=== PATIENT | male | born 1940 | race Caucasian/White ===

== ENCOUNTER → 2017-07-27 | Outpatient (CLI) | payer MEDICARE, BC | END | disposition home or self-care (01) | LOC: GMAL 11:12 | PROVIDERS: ATTEND Family Medicine | DX: D51.3 Other dietary vitamin B12 deficiency anemia (principal); Z12.5 Encounter for screening for malignant neoplasm of prostate; R53.82 Chronic fatigue, unspecified; E55.9 Vitamin D deficiency, unspecified | CPT/HCPCS: 82306; 82607; 84443; G0103 ==

== ENCOUNTER → 2018-01-29 | Outpatient (CLI) | payer MEDICARE, BC ==
--- NOTE | 2018-01-29 18:03 | RAD ---
EXAM DESCRIPTION: Pelvis CLINICAL HISTORY: 77 years Male, RIGHT HIP PAIN COMPARISON: None. TECHNIQUE: Single AP view the pelvis FINDINGS: Bones of the pelvic ring appear intact. Degenerative changes are seen in the lower lumbar spine with mild dextroscoliosis partly visualized. There is moderate narrowing of the medial aspect of the hip joints bilaterally. No femoral fracture or hip dislocation. There is early spur formation at the superolateral femoral head neck junctions and along the lateral margins of the acetabular roofs. Pelvic phleboliths are present. IMPRESSION: Negative for fracture or dislocation. Electronically signed by: Jose E Hawkins MD 01/29/2018 6:00 PM CDT
--- NOTE | 2018-01-30 12:02 | RAD ---
EXAM DESCRIPTION: Hip,Right 2 Views CLINICAL HISTORY: 77 years Male, RIGHT HIP PAIN COMPARISON: None. FINDINGS: 2 views of the right hip show no acute fracture or malalignment. The right hip joint space is only slightly narrowed. No focal bone lesion. No soft tissue abnormality. IMPRESSION: Mild degenerative changes in the right hip, otherwise unremarkable exam. Electronically signed by: Nate Preston MD 01/30/2018 12:00 PM CDT
== END ==
LOC: RAD 09:07
PROVIDERS: ATTEND Orthopaedic Surgery
DX: M25.551 Pain in right hip (principal)

== ENCOUNTER → 2018-02-03 | Outpatient (CLI) | payer MEDICARE, BC | LOC: GMAL 10:57 | PROVIDERS: ATTEND Family Medicine | DX: R97.20 Elevated prostate specific antigen [PSA] (principal) ==

== ENCOUNTER → 2018-02-05 | Outpatient (CLI) | payer MEDICARE, BC ==
--- NOTE | 2018-02-08 08:44 | MRI ---
EXAM DESCRIPTION: Lumbar Spine w/o Contrast MRI. CLINICAL HISTORY: RADICULOPATHY COMPARISON: None. TECHNIQUE: Multiplanar, multiple standard sequences, non contrast MRI, lumbar spine. FINDINGS: L5-S1: Disc desiccation and minimal disc space loss. Minimal bulging into the bilateral foramina but not the canal. Mild canal narrowing. Bilateral facet effusion and flavum ligament hypertrophy. Modic type II endplate reactive changes with disc spur complex encroaching on the right foramen. Bilateral foraminal stenosis more right than left. Bilateral subarticular recess narrowing secondary to facet hypertrophy. Right L5 pars spondylolysis. L4-5: Disc desiccation and posterior disc space loss. Posterior 4 mm disc bulge. Minimal flavum ligament hypertrophy. Minimal right facet arthrosis. Mild left foraminal narrowing. Borderline right foraminal stenosis. L3-4: Minimal disc desiccation posterior minimal disc osteophyte bulge. Flavum ligament hypertrophy and bilateral facet arthrosis more right than left. Questionable deformity of the right L4 pars. Left L4 pars is intact. Moderate right foraminal narrowing. Mild narrowing left foramen. Mild canal narrowing. L2-3: Moderate to severe disc space loss in the midline into the left midline with diffuse Modic type II endplate reactive changes anterior and to the right. Trace retrolisthesis. Bilateral mild foraminal narrowing. Posterior facet arthrosis more on the left than the right. L1-2: Diffuse moderate severe disc space loss with trace retrolisthesis. Modic type II endplate reactive changes in the midline into the left of midline. Also anterior with disc bulge and endplate ridging. Schmorl's nodes in the endplates.. Disc osteophyte bulge into the left foramen with borderline foraminal stenosis. Normal disc space to the right of midline. T12-L1: Disc desiccation and endplate Schmorl's nodes. Minimal posterior disc bulge. Conus terminates at this level. Mild bilateral foraminal narrowing. Posterior elements unremarkable. L1-L4 dextroscoliosis is moderate. Paravertebral soft tissues show muscle atrophy. Heterogeneous marrow signal in the sacrum and lower segments of the lumbar spine.. Otherwise normal marrow signal in the remaining vertebral bodies and the posterior elements. Vertebral bodies are not compressed at any level. IMPRESSION: 1. Trace retrolisthesis L5-S1 with moderate right-sided spondylosis, disc spur complex encroaching on the right foramen and stenosis. Disc and bony elements causing stenosis on the left foramen. Correlate for bilateral L5 radiculopathy. Right L5 pars spondylolysis. Bilateral subarticular recess narrowing due to facet hypertrophy. 2. L4-5 posterior disc bulge. Right facet arthrosis and borderline right foraminal stenosis. Correlate for right L4 radiculopathy. 3. L1-2 trace retrolisthesis and diffuse moderate to severe disc space loss. Left side spondylosis and disc osteophyte complex encroaching on the foramen. Correlate for left L1 radiculopathy. 4. Moderate to severe L2-3 disc space loss with moderate spondylosis on the right and disc osteophyte complex encroaching on the right foramen. Electronically signed by: Yash Sanders MD 02/08/2018 8:43 AM CDT
== END ==
LOC: MRI 13:52
PROVIDERS: ATTEND Orthopaedic Surgery
DX: M51.16 Intervertebral disc disorders with radiculopathy, lumbar region (principal); M43.17 Spondylolisthesis, lumbosacral region

== ENCOUNTER 2018-08-23 21:24 | Inpatient (IN) | payer MEDICARE, BC ==
[2018-08-23] MEDS ORDERED: methylPREDNISolone SODIUM SUC 125 MG/2 ML VIAL IV ONE (21:47)
[2018-08-23] MEDS ORDERED: IPRATROPIUM/ALBUTEROL 3 ML VIAL NEB ONE (21:48)
--- NOTE | 2018-08-23 22:05 | ED.PDOC ---
History of Present Illness - General Chief Complaint: Respiratory Problem Stated Complaint: short of breath Time Seen by Provider: 08/23/18 21:46 - History of Present Illness Initial Comments: 77 Y/O MALE C/O SOB, STARTED TODAY AROUND 1000, CONSTANT, MODERATE, GETTING WORSE. REFERS THAT HE HAD A TOOTH PULLED ABOUT 2 WEEKS AGO FOR WHICH HE HAS BEEN IN TWO ANTIBIOTICS, DOESN'T REMEMBER NAME. ONE WEEK AGO STARTED SINUS CONGESTION AND GREEN, MAL ODOROUS RHINORRHEA, HAS APPOINTMENT TO SEE DR Evelyne WILKERSON TOMORROW. HAS HAD LOW GRADE FEVER IN THE PAST TWO DAYS, SL COUGH BUT NO PHLEGM. DENIES CP, ABD PAIN, N/V/D, PEDAL EDEMA. Allergies/Adverse Reactions: Allergies Penicillins Allergy (Verified 08/23/18 21:41) Home Medications: Ambulatory Orders Aspirin (Buffered) 325 mg 08/23/18 Atenolol 08/23/18 Atorvastatin Calcium 08/23/18 Eliquis 08/23/18 Losartan Potassium 08/23/18 Zantac 08/23/18 Review of Systems - Review of Systems Constitutional: States: fever. Denies: chills, weakness EENTM: States: nose congestion. Denies: eye pain, blurred vision, double vision , ear pain, ear discharge, nose pain, throat pain, mouth pain Respiratory: States: cough, short of breath. Denies: orthopnea, stridor, wheezing Cardiology: Denies: chest pain, edema, palpitations, syncope Gastrointestinal/Abdominal: States: no symptoms reported Genitourinary: States: no symptoms reported Musculoskeletal: States: no symptoms reported Skin: States: no symptoms reported Neurological: States: no symptoms reported Endocrine: States: no symptoms reported Hematologic/Lymphatic: States: no symptoms reported Past Medical History (General) - Patient Medical History Hx Cardiac Disorders: Yes - NM IN 2010, A FIB Hx Congestive Heart Failure: No Hx Hypertension: Yes Hx Gastroesophageal Reflux: Yes Hx Other - free text: HYPERCHOLESTEROLEMIA - Vaccination History Immunizations Up to Date: Yes - Social History Hx Tobacco Use: No Hx Chewing Tobacco Use: No Hx Alcohol Use: No - Activities of Daily Living Patient Lives Alone: No - Triage Comment ED Triage Comment: shortness of breath over past several hours, getting worse Family Medical History - Family History Father Family History: Unknown Physical Exam - Physical Exam General Appearance: Alert, Other - MILD RESPIRATORY DISTRESS Eye Exam: bilateral normal Ears, Nose, Throat: normal ENT inspection, normal pharynx, hearing decreased Neck: non-tender, full range of motion, supple, normal inspection Respiratory: chest non-tender, rhonchi, wheezing Cardiovascular/Chest: normal peripheral pulses, regular rate, rhythm, no edema, no gallop, no JVD Gastrointestinal/Abdominal: normal bowel sounds, non tender, soft, no organomegaly, no pulsatile mass Back Exam: normal inspection, no CVA tenderness Neurologic: city wellness coordinator II-XII nml as tested, no motor/sensory deficits, alert, normal mood/affect, oriented x 3 Skin Exam: normal color, warm/dry Lymphatic: no adenopathy Progress - Progress Progress: 08/23/18 23:13 BREATHING SL BETTER AFTER BREATHING TREATMENTS. STILL HAVING SOME BILATERAL WHEEZING. CXR C/W BILAT CONSOLIDATION AND PULMONARY EDEMA, BNP AND CBC ELEVATED. BLOOD CULTURES DONE, LEVAQUIN AND LASIX IV GIVEN. 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, WILL ADMIT 08/23/18 23:16 08/23/18 21:45 EKG STAT 08/23/18 22:00 EKG STAT 08/23/18 22:45 levoFLOXacin 750MG IV [Levaquin 750MG IV] 750 mg Premix Bag 1 bag IVPB ONCE 08/23/18 23:00 BLOOD CULTURE Stat Laboratory Results WBC 12.4 K/mm3 (4.8-10.8) H 08/23/18 21:50 RBC 4.21 M/mm3 (4.70-6.10) L 08/23/18 21:50 Hgb 11.7 gm/dL (14.0-18.0) L 08/23/18 21:50 Hct 36.3 % (42.0-52.0) L 08/23/18 21:50 MCV 86.2 fl (80.0-94.0) 08/23/18 21:50 MCH 27.7 pg (27.0-31.0) 08/23/18 21:50 MCHC 32.2 g/dL (33.0-37.0) L 08/23/18 21:50 RDW 12.1 % (11.5-14.5) 08/23/18 21:50 Plt Count 330 K/mm3 (130-400) 08/23/18 21:50 MPV 9.8 fl (7.40-10.4) 08/23/18 21:50 Absolute Neuts (auto) 10.50 K/uL (1.8-6.8) H 08/23/18 21:50 Absolute Lymphs (auto) 0.80 K/uL (1.0-3.4) L 08/23/18 21:50 Absolute Monos (auto) 0.80 K/uL (0.2-0.8) 08/23/18 21:50 Absolute Eos (auto) 0.30 K/uL (0.0-0.4) 08/23/18 21:50 Absolute Basos (auto) 0.10 K/uL (0.0-0.1) 08/23/18 21:50 Neutrophils % 84.6 % (42.0-78.0) H 08/23/18 21:50 Lymphocytes % 6.1 % (20.0-50.0) L 08/23/18 21:50 Monocytes % 6.3 % (2.0-9.0) 08/23/18 21:50 Eosinophils % 2.3 % (1.0-5.0) 08/23/18 21:50 Basophils % 0.7 % (0.0-2.0) 08/23/18 21:50 PT 10.8 SECONDS (9.0-10.9) 08/23/18 21:50 INR 1.08 (0.9-1.15) 08/23/18 21:50 PTT (SP) 27.9 SECONDS (21.8-31.6) 08/23/18 21:50 Sodium 138 mmol/L (135-145) 08/23/18 21:50 Potassium 4.0 mmol/L (3.6-5.0) 08/23/18 21:50 Chloride 107 mmol/L (101-111) 08/23/18 21:50 Carbon Dioxide 24 mmol/L (21-31) 08/23/18 21:50 Anion Gap 11.0 (12-18) L 08/23/18 21:50 BUN 16 mg/dL (7-18) 08/23/18 21:50 Creatinine 1.20 mg/dL (0.6-1.3) 08/23/18 21:50 BUN/Creatinine Ratio 13.3 (10-20) 08/23/18 21:50 Random Glucose 147 mg/dL (70-105) H 08/23/18 21:50 Serum Osmolality 279.6 mOsm/L (275-295) 08/23/18 21:50 Calcium 8.7 mg/dL (8.4-10.2) 08/23/18 21:50 Total Bilirubin 0.5 mg/dL (0.2-1.0) 08/23/18 21:50 AST 31 IU/L (10-42) 08/23/18 21:50 ALT 33 IU/L (10-60) 08/23/18 21:50 Alkaline Phosphatase 123 IU/L (42-121) H 08/23/18 21:50 Troponin I 0.02 ng/mL (0.01-0.05) 08/23/18 21:51 B-Natriuretic Peptide 830.0 pg/ml (0-100) H* 08/23/18 21:50 Serum Total Protein 7.1 gm/dL (6.4-8.2) 08/23/18 21:50 Albumin 3.5 g/dl (3.2-5.5) 08/23/18 21:50 Globulin 3.6 gm/dL (2.3-3.5) H 08/23/18 21:50 Albumin/Globulin Ratio 1.0 (1.1-1.9) L 08/23/18 21:50 - EKG/XRAY/CT Comments: NSR 65X', AQRS: 20 QTc 472 NON SPECIFIC STT CHANGES Xray Comments: BILATERAL CONSOLIDATION AND PULMONARY EDEMA - Consult/PCP Time Called: 23:15 - WILL ADMIT Consult/PCP: Daniel RASHEED Departure - Departure Clinical Impression: Bilateral pneumonia, Congestive heart failure (CHF) ICD-10 Supporting Text: BILATERAL PNEUMONIA CONGESTIVE HEART FAILURE Time of Disposition: 23:19 Disposition: Admit Patient Condition: Fair Departure Forms: ED Discharge - Pt. Copy, Patient Portal Self Enrollment Referrals: Venancio Vaca III, MD [Primary Care Provider] - 1-2 Weeks Home Medications: Ambulatory Orders Aspirin (Buffered) 325 mg 08/23/18 Atenolol 08/23/18 Atorvastatin Calcium 08/23/18 Eliquis 08/23/18 Losartan Potassium 08/23/18 Zantac 08/23/18
--- NOTE | 2018-08-23 22:19 | RAD ---
EXAM DESCRIPTION: Chest,1 View CLINICAL HISTORY: SOB COMPARISON: EXAM DESCRIPTION: Chest,1 View CLINICAL HISTORY: SOB COMPARISON: None. FINDINGS: Single view of the chest is submitted. Cardiac silhouette is mildly enlarged. There is bilateral consolidation at the lung bases with pulmonary edema and bilateral pulmonary vascular engorgement. IMPRESSION: Bilateral consolidations and pulmonary edema. FINDINGS: Cardiac silhouette is within normal limits. There is no focal parenchymal or pleural disease. Visualized osseous structures are within normal limits. IMPRESSION: No evidence of acute cardiopulmonary disease. Electronically signed by: Yash Harris 08/23/2018 10:18 PM CDT
[2018-08-23] MEDS ORDERED: FUROSEMIDE INJ 40 MG/4 ML VIAL IV ONE (22:44)
[2018-08-23] MEDS ORDERED: levoFLOXacin 750MG IV 750 MG in PREMIX BAG 1 BAG IVPB ONE (22:45)
--- NOTE | 2018-08-23 23:49 | HP ---
SUPERVISING PHYSICIAN: Aki Quiroga MD CHIEF COMPLAINT: Shortness of breath. HISTORY OF PRESENT ILLNESS: Mr. Singh is a 77-year-old male patient who presented to the Emergency Room late on 08/23/18 for complaints of severe congestion, shortness of breath that had significantly worsened since he had a tooth pulled about two weeks previously. He noted last night around 10 o'clock his shortness of breath worsened enough that he was concerned and thus presented to the Emergency Room. He notes he had a tooth pulled about two weeks previously and was placed on two antibiotics, which he was unable to recall the names of, and about a week previous had started having severe sinus congestion with some green, malodorous rhinorrhea. He was to see Dr. Kirkland on 08/24/18, but developed a low grade fever with a slight nonproductive cough and was having shortness of breath. He denied any chest pains, any abdominal pains, nausea, vomiting, diarrhea or any pedal edema. In the Emergency Room, vital signs showed he was hypertensive initially with a blood pressure of 194/ 116. Temperature 99.6. Pulse 64. Respirations 20 to 26. Saturation 94% on room air. Chest x-ray was completed and shows bilateral consolidation in the lung bases with pulmonary edema, bilateral pulmonary vascular engorgement. Laboratory studies showed he had a leukocytosis of 12,400 with a left shift and chemistries showed BNP of 830 with troponin 0.02. His 12-lead EKG showed a normal sinus rhythm at [address]-T wave changes with no comparisons available. Given his shortness of breath and findings on chest x- ray along with the BNP elevated, he was given 40 mg of Lasix, breathing treatments and started on antibiotics for concerns for both congestive heart failure exacerbation and concern for community acquired pneumonia. His symptoms improved after Lasix and breathing treatments with his vital signs showing blood pressure decreased to 150/78 with heart rate 54, saturation 96% on 2 liters nasal cannula with respiratory effort 20. Given that he had developed acute shortness of breath with concerns for possible acute congestive heart failure with history noted of congestive heart failure and concerns for community acquired pneumonia, the Emergency Room physician requested the patient be admitted for further treatment and evaluation. The patient was admitted in stable condition. PAST MEDICAL HISTORY: 1. Atrial fibrillation on amiodarone and chronic anticoagulation with Eliquis. 2. Hyperlipidemia. 3. Hypertension with mild diastolic dysfunction noted on last echocardiogram on 12/27/16 with ejection fraction of 60%. 4. Myocardial infarction in 2009. 5. Benign prostatic hypertrophy on Cialis. PAST SURGICAL HISTORY: 1. Right inguinal hernia repair in 2006. 2. Coronary artery stent placement in the right coronary artery [place] [address] Mccracken. Last echocardiogram noted on 12/17/16 with a mild diastolic dysfunction with ejection fraction 60%. Nuclear stress test on 12/17/16 with normal EKG findings and normal perfusion with no at risk myocardium. HOME MEDICATIONS: 1. Vitamin B12 2500 mcg daily. 2. Famotidine 20 mg at bedtime. 3. Amiodarone 200 mg daily. 4. Meloxicam 7.5 mg b.i.d. 5. Atorvastatin 40 mg at bedtime. 6. Cialis 5 mg at bedtime. 7. Aspirin 325 mg daily. 8. Losartan 50 mg daily. 9. Atenolol 50 mg daily. 10. Eliquis 5 mg b.i.d. ACUTE MEDICATIONS: 1. Cephalexin 500 mg t.i.d. for 10 days. ALLERGIES: PENICILLINS. FAMILY HISTORY: Father at age 78 due to lung cancer. Mother at age 91 due to complications from dementia. SOCIAL HISTORY: The patient lives in [place], [place]. He is a retired saucedo. He is . He has four children, one . He does not drink alcohol and never has. He smoked tobacco from age 13 to 33 and currently is a nonsmoker. He denies any illicit drug use. REVIEW OF SYSTEMS: CONSTITUTIONAL: Denies any chills, or weakness. He reports a subjective low grade fever. HEENT: He notes significant nasal congestion with purulent rhinorrhea, foul smelling, but denies any earaches, sore throat. He does note he has had a chronic hoarseness of his voice. RESPIRATORY: He has a nonproductive cough with shortness of breath as noted in history of present illness. He denies any orthopnea, stridor or wheezing. CARDIOVASCULAR: Denies chest pain, palpitations, edema or syncopal episodes. GASTROINTESTINAL: Denies abdominal pain, constipation, diarrhea. GENITOURINARY: Denies dysuria, hematuria, polyuria. NEUROLOGIC: Denies ataxia, seizures, headaches, or other neurologic deficits. PHYSICAL EXAMINATION: VITAL SIGNS: On admission in the Emergency Room, he was hypertensive with a blood pressure 194/116. Heart rate 64. Temperature 99.6. Respirations 20 to 30. O2 saturation 94% on room air. After breathing treatments and Lasix, on admission to the Medical/Surgical Floor, blood pressure was 160/88. Heart rate 50. Respirations 20. Saturation 97% on 2 liters nasal cannula. Admission weight 76.2 kg. GENERAL: On admission to the Medical/Surgical Floor, the patient appeared to be in no acute distress, resting comfortably, no obvious shortness of breath. HEENT: Tympanic membranes clear bilaterally. Oropharynx is pink, moist without any lesions. NECK: Supple, nontender with full range of motion. RESPIRATORY: Lung sounds diminished with some rhonchi and mild inspiratory wheezing. No rales noted. CARDIOVASCULAR: Regular rate and rhythm without any appreciable murmurs, gallops, or rubs. No jugular venous distention noted. ABDOMEN: Soft, nontender. No rebound tenderness. Positive bowel sounds. EXTREMITIES: There is no cyanosis, clubbing or edema. NEUROLOGIC: The patient is alert and oriented times three. Cranial nerves II- XII are grossly intact. Facial features are symmetrical. Extraocular movements are within normal limits. There is no nystagmus noted. LABORATORY: CBC on admission showed white count 12,400, hemoglobin 11.7, hematocrit 36.3, platelet count 330,000. Differential show a left shift. Coagulation studies showed PT 10.8, PT-T 27.9. Chemistries showed normal electrolytes. Potassium 4.0, BUN 16, creatinine 1.2. Liver functions within normal limits. Alkaline phosphatase elevated at 123. Troponin 0.02 initially with BNP 830. Urinalysis pending. MICROBIOLOGY: Blood cultures pending. Sputum culture pending. RADIOLOGY: Chest x-ray, single view, in the Emergency Room prior to admission per radiologic interpretation showed bilateral consolidations at the lung bases with pulmonary edema and bilateral pulmonary vascular engorgement. CT of the head and sinuses pending. ASSESSMENT: 1. Acute dyspnea secondary to pulmonary edema possibly exacerbated by developing upper respiratory infection including possible community acquired pneumonia, bilateral resulting in acute episode fo AFIB with Rapid ventricular Response. 2. Concerns for developing bilateral community acquired pneumonia with the patient having been on two-week course of antibiotics with a history of upper respiratory infection and sinusitis. 3. Severe sinusitis status post dental extractions having failed to respond to outpatient management with antibiotics, awaiting CT studies for further evaluation and to further without abscess formation. 4. History of atrial fibrillation on chronic anticoagulation with Eliquis. Showing sinus rhythm on admit EKG. 5. Hypertension with urgency on admission, likely secondary to acute episode of pulmonary edema. 6. Benign prostatic hypertrophy on Cialis without any complications. PLAN: The patient is going to be admitted to the Medical/Surgical Floor having failed to respond outpatient of upper respiratory infection with developing bilateral community acquired pneumonia with acute onset of pulmonary edema. We will start him on Levaquin and obtain a CT of his head and sinuses to further rule out abscess formation. He will be on aggressive pulmonary hygiene. He was given Solu-Medrol initially in the Emergency Room. This will be closely monitored, but we will hold on giving additional steroids at this point. I have asked for a consult with Dr. Mccracken to help with management of the acute pulmonary edema and with concerns for acute onset of congestive heart failure. He is supposed to have an appointment Dr. Kirkland in the morning, however, I anticipate his stay will be at least two or three days and certainly at discharge he can followup with Dr. Kirkland as needed. We will start him on Lasix 40 mg b.i.d. for the first 24 hours, watch his I&Os closely and provide him with potassium supplementation as needed. Until the patient is showing clinical improvement and can be discharged to continue with outpatient management, we will continue to follow and treat as needed. Once discharged, he will need followup with his primary care physician, Dr. Vaca. #[id number] [facility]
[2018-08-24] MEDS ORDERED: ALBUTEROL SULFATE 2.5 MG/3 ML VIAL NEB PRN (00:26)
[2018-08-24] MEDS ORDERED: ACETAMINOPHEN 325 MG TAB PO PRN (00:26)
[2018-08-24] MEDS ORDERED: SODIUM CHLORIDE 0.9% (FLUSH) 10 ML SYG IV PRN ×2 (00:26→00:33)
[2018-08-24] MEDS ORDERED: IV SET AND CAP CHANGE INJ INJ SCH ×2 (00:30→01:00)
[2018-08-24] MEDS ORDERED: ELIQUIS 5 MG PO SCH (00:30)
[2018-08-24] MEDS ORDERED: NITROGLYCERIN 0.4 MG 25 EA TAB SL PRN (00:33)
[2018-08-24] MEDS ORDERED: APIXABAN 2.5 MG TAB PO ONE ×2 (01:00→08:18)
[2018-08-24] MEDS: MELOXICAM 7.5 MG TAB PO SCH ×3 (01:04→20:40)
[2018-08-24] MEDS: PANTOPRAZOLE SODIUM IV 40 MG VIAL IV SCH (06:37)
--- NOTE | 2018-08-24 07:13 | RAD ---
EXAM: PA and LATERAL CHEST RADIOGRAPHS CLINICAL INDICATION: Pneumonia. COMPARISON: Yesterday's chest radiograph at 2152 hours. FINDINGS: Cardiac size has returned to normal. Resolution of pulmonary edema. Residual right basilar consolidation. Left lung is clear. No pneumothorax. Bones appear intact on this single view. IMPRESSION: 1. Resolution of pulmonary edema since yesterday's chest radiograph. 2. Residual right basilar consolidation which might represent pneumonia. 3. No pneumothorax. Electronically signed by: Damian Mendosa MD 08/24/2018 7:11 AM CDT
[2018-08-24] MEDS ORDERED: POTASSIUM CHLORIDE 20 MEQ TAB PO SCH (07:30)
[2018-08-24] MEDS: IPRATROPIUM/ALBUTEROL 3 ML VIAL INH SCH ×4 (07:47→19:38)
[2018-08-24] MEDS ORDERED: ATENOLOL 25 MG TAB ONE (08:18)
[2018-08-24] MEDS ORDERED: ASPIRIN TABLET 325 MG TAB ONE (08:18)
[2018-08-24] MEDS ORDERED: LOSARTAN POTASSIUM 25 MG TAB ONE (08:18)
[2018-08-24] MEDS ORDERED: FUROSEMIDE INJ 40 MG/4 ML VIAL IV SCH (09:00)
[2018-08-24] MEDS: LOSARTAN POTASSIUM 25 MG TAB PO SCH (09:45)
[2018-08-24] MEDS: AMIODARONE HCL 200 MG TAB PO SCH (09:45)
[2018-08-24] MEDS: ATENOLOL 25 MG TAB PO SCH (09:45)
[2018-08-24] MEDS: APIXABAN 2.5 MG TAB PO SCH ×2 (09:45→20:39)
[2018-08-24] MEDS: CYANOCOBALAMIN 1,000 MCG TAB PO SCH (09:45)
[2018-08-24] MEDS: ASPIRIN (ENTERIC COATED) 325 MG TAB PO SCH (09:47)
--- NOTE | 2018-08-24 10:44 | CT ---
CLINICAL HISTORY: 77 years Male, chronic sinusitis COMPARISON: None. TECHNIQUE: Spiral, axial 2.5 x 2.5 mm scans through the paranasal sinuses without contrast. Coronal and sagittal 2.0 mm reconstructions. Axial, helical 2.5 mm reconstruction using bone algorithm. Total Exam DLP: 221.06 mGy-cm. This exam was performed according to our departmental CT dose-optimization program which includes automated exposure control, adjustment of the mA and/or kV according to patient size and/or use of iterative reconstruction technique; to reduce radiation dose to as low as reasonably achievable (ALARA). FINDINGS: Large air-fluid level occupying at least 50% of the left maxillary antrum with mucoperiosteal thickening. Obstruction of the left ostiomeatal unit. Air-fluid level in the right maxillary antrum but smaller volume. Also mucoperiosteal thickening and mucous retention cyst or polyps in the base. Partial narrowing of the right ostium of the ostiomeatal unit. Polyp versus mucous retention cyst anterior sphenoid sinus cavity to the right of midline. Partial obstruction of the right sphenoid nasal ostia. Left sphenoid nasal ostia is patent. Muco- periosteal thickening anterior ethmoid air cells. Mucoperiosteal thickening in the left frontal air cells. Bilateral woo bullosa in the middle turbinates. Septum is deviated to the right. Minimal turbinate mucosal hypertrophy bilaterally. Included mastoid air cells are unremarkable on the left with minimal opacification of some of the cells on the right. Posterior left septal spur narrowing the posterior left mid passage way. IMPRESSION: 1. Acute sinusitis involving the maxillary antra more on the left than the right. Obstruction of the left ostiomeatal unit and narrowing of the ostia on the right ostiomeatal unit. 2. Chronic sinusitis in the anterior ethmoid air cells, large right sphenoid air cell and inferior anterior left frontal air cells. 3. Bilateral woo bullosa in the middle turbinates. Anterior right septal deviation. Posterior left septal spur narrowing the posterior left nasal passageway. 4. Chronic sinusitis in some of the right mastoid air cells. Electronically signed by: Yash Sanders MD 08/24/2018 10:42 AM CDT
--- NOTE | 2018-08-24 10:56 | CT ---
EXAM DESCRIPTION: Head: Computed Tomography. CLINICAL HISTORY: sinus pressure, confusion. Pain in maxillary region of sinuses bilaterally. COMPARISON: CT scan of the facial bones and paranasal sinuses without contrast this visit. TECHNIQUE: Non-helical axial scans through the skull and brain, at 2.5 m intervals, non-contrast. Coronal and sagittal 2.0 mm reconstructions. Total Exam DLP: 752.48 mGy-cm. This exam was performed according to our departmental dose-optimization program which includes automated exposure control, adjustment of the mA and/or kV according to patient size and/or use of iterative reconstruction technique; to reduce radiation dose to as low as reasonably achievable (ALARA). FINDINGS: No hemorrhage, no mass-effect, and no midline shift. Asymmetric low-density in the periventricular white matter abutting the left frontal horn of the ventricle in the left frontal lobe. No definitive mass effect or associated hemorrhage. Minimal bilateral symmetric low-density in the heaton radiata above the basal ganglia. No abnormal radiodense material in the brain parenchyma. Vascular calcifications anterior and posterior circulations.; physiologic calcifications in the pineal gland and choroid plexus. No effacement or displacement of the ventricles, CSF spaces, or subdural spaces. Cortical atrophy slightly more prominent in the bilateral frontal lobes compared to other lobes. No extra axial fluid collection or hemorrhage. Cavum septum pellucid and present, a normal variant. No gross abnormalities of the bony calvarium. Bilateral chronic and acute paranasal sinus disease. Minimal soft tissue in a few and mastoid air cells on the right. IMPRESSION: 1. No hemorrhage, no mass effect, no midline shift. Bilateral periventricular chronic microvascular and age-related findings in the heaton radiata. Focal low-density abutting the left frontal horn of the ventricle in the left frontal lobe. No definite mass effect or hemorrhage. Correlate with neurological findings. Bilateral frontal cortical atrophy is symmetric. 2. CT scans are insensitive for detecting small CVAs in the first 24 hours after onset. Evaluation of the brain stem is also limited. If symptoms persist, consider NON-EMERGENT MRI scan of the brain with diffusion imaging. Electronically signed by: Yash Sanders MD 08/24/2018 10:55 AM CDT
[2018-08-24] MEDS ORDERED: methylPREDNISolone SODIUM SUC 125 MG/2 ML VIAL IV ONE (18:06)
--- NOTE | 2018-08-24 18:50 | PN ---
DATE: 08/24/18 SUPERVISING PHYSICIAN: Aki Quiroga M.D. SUBJECTIVE: The patient this morning notes that he has a much easier time breathing after diuresing off with Lasix. He has had no chest pains, nausea or vomiting. He still has copious amounts of purulent rhinorrhea. He has been afebrile. OBJECTIVE: VITAL SIGNS: Temperature 97.4, pulse 55, blood pressure 110/62, respirations 18, satting 96% on nasal cannula at 2 liters. I's and O's show a negative balance of 1979 with 220 in, 2200 out. Weight is 76.2 kg which is down from admission of 77.3. GENERAL: The patient appears to be much more comfortable this morning. No acute distress. He is alert. CHEST: Lung sounds are much improved in aeration, just slightly diminished towards the bases but no rhonchi, rales or wheezing are noted. CARDIOVASCULAR: Heart rate remains regular rate and rhythm without any EKG changes overnight. ABDOMEN: Soft, non- tender. Positive bowel sounds. EXTREMITIES: Without any clubbing, cyanosis or edema. NEUROLOGIC: He is alert and oriented times three. LABORATORY: White count 7,200 today with hemoglobin 11.6, hematocrit 35.5, platelet count 292,000. Differential shows to have a continued left shift. Chemistries show now normal electrolytes with potassium 4.0, BUN 16, creatinine 1.26, calcium 9.0. MICROBIOLOGY: Blood cultures remain pending. RADIOLOGY: Sinus and CT of the head is pending. ASSESSMENT: 1. Acute dyspnea secondary to pulmonary edema possibly exacerbated by developing upper respiratory infection including questionable community acquired pneumonia, bilaterally resulting in acute episode of AFIB probably with Rapid ventricular Response that has resolved and the patient responding to diuresis with Lasix pending cardiology consultation with Dr. Mccracken. 2. Questionable developing bilateral pneumonia community acquired with the patient having been on two-week course of antibiotics for a history of upper respiratory infection including a significant sinusitis with purulent rhinorrhea awaiting CT findings to further rule out questionable sinus abscess. 3. Severe sinusitis status post recent dental extraction of two teeth having failed to respond to outpatient management with antibiotics, including Keflex and again awaiting further results of CT to rule out intracranial abscess or sinus abscess formation. 4. History of atrial fibrillation on chronic anticoagulation with Eliquis. Showing sinus rhythm on admission EKG without any ST changes. 5. Hypertension with urgency on admission felt to be secondary to acute episode of pulmonary edema now improving with treatment, including diuresis with Lasix. 6. Benign prostatic hypertrophy on Cialis without any complications. PLAN: Will await Dr. Mccracken' consultation and echocardiogram. He will continue on antibiotic coverage with Levaquin. Will continue with gentle diuresis with Lasix today 20 mg starting in the morning daily with potassium replacement as needed. Will continue with aggressive pulmonary hygiene and again hopefully be able to discharge tomorrow with anticipation of followup with his primary care provider, Dr. Vaca, in the outpatient setting. Until then will continue to monitor and treat as needed. #[id number] [facility]
[2018-08-24] MEDS ORDERED: ATORVASTATIN 20 MG TAB PO SCH (21:00)
[2018-08-24] MEDS ORDERED: TADALAFIL 5 MG PO SCH (21:00)
[2018-08-24] MEDS ORDERED: levoFLOXacin 750MG IV 750 MG in PREMIX BAG 1 BAG IVPB SCH (22:00)
[2018-08-25] MEDS: PANTOPRAZOLE SODIUM IV 40 MG VIAL IV SCH (06:13)
[2018-08-25] MEDS ORDERED: POTASSIUM CHLORIDE 20 MEQ TAB PO SCH (07:30)
[2018-08-25] MEDS: IPRATROPIUM/ALBUTEROL 3 ML VIAL INH SCH ×2 (08:30→13:05)
[2018-08-25] MEDS ORDERED: FUROSEMIDE 40 MG TAB PO SCH (09:00)
[2018-08-25] MEDS: CYANOCOBALAMIN 1,000 MCG TAB PO SCH (09:12)
[2018-08-25] MEDS: AMIODARONE HCL 200 MG TAB PO SCH (09:12)
[2018-08-25] MEDS: ATENOLOL 25 MG TAB PO SCH (09:13)
[2018-08-25] MEDS: MELOXICAM 7.5 MG TAB PO SCH (09:14)
[2018-08-25] MEDS: LOSARTAN POTASSIUM 25 MG TAB PO SCH (09:15)
[2018-08-25 10:24] VITALS: BP 131/73; TEMP 97.5; O2SAT 97
[2018-08-25] MEDS: ASPIRIN (ENTERIC COATED) 325 MG TAB PO SCH (13:17)
[2018-08-25] MEDS: APIXABAN 2.5 MG TAB PO SCH (13:17)
--- NOTE | 2018-08-26 08:30 | DS ---
SUPERVISING PHYSICIAN: Aki Quiroga MD DISCHARGE DIAGNOSIS: 1. Acute dyspnea secondary to pulmonary edema, possibly exacerbated by developing upper respiratory infection including questionable community acquired pneumonia, bilaterally, resulting in acute episode of atrial fibrillation probably with rapid ventricular response that has resolved. The patient has responded to diuretics. 2. Questionable developing bilateral pneumonia, community acquired, with the patient having been on two-week course of antibiotics for a history of upper respiratory infection including a significant sinusitis with purulent rhinorrhea with CT evidence for acute on chronic sinusitis. 3. Severe sinusitis status post recent dental extraction of two teeth having failed to respond to outpatient management with antibiotics, including Keflex. 4. Mild congestive heart failure with a diastolic component. His ejection fraction on echocardiogram was 60% after consultation with Dr. Mccracken, cable supervisor. 5. History of atrial fibrillation on chronic anticoagulation with Eliquis, showing sinus rhythm on admission EKG without any ST changes. 6. Hypertension with urgency on admission felt to be secondary to acute episode of pulmonary edema, now improved. 7. Benign prostatic hypertrophy on Cialis without any complications. HISTORY OF PRESENT ILLNESS: This is a 77-year-old male patient who presented to the Emergency Room late on 08/23/18 for complaints of severe congestion, shortness of breath that had significantly worsened since he had a tooth pulled about two weeks previously. His shortness of breath worsened that evening enough that he was concerned and came to the Emergency Room. His dentist, after pulling his tooth two weeks previous, placed him on two unknown antibiotics. A week after his tooth extraction, he began to have severe sinus congestion with some green, malodorous rhinorrhea. He was to see Dr. Kirkland on 08/24/18, but developed a low grade fever with a slight productive cough and shortness of breath. He denied any chest pains, any abdominal pains, nausea, vomiting, diarrhea or any pedal edema. In the Emergency Room, he was hypertensive initially with a blood pressure of 194/116. Temperature 99.6. Pulse 64. Respirations 20 to 26. Saturation 94% on room air. Chest x-ray was completed and showed bilateral consolidation in the lung bases with pulmonary edema, bilateral pulmonary vascular engorgement. Laboratory studies showed he had a leukocytosis of 12,400 with a left shift and chemistries showed BNP of 830 with troponin 0.02. His 12-lead EKG showed a normal sinus rhythm at [address]-T wave changes with no comparison available. Given his shortness of breath and findings on chest x-ray along with the BNP elevated, he was given 40 mg of Lasix, breathing treatments and started on antibiotics for concerns for both congestive heart failure exacerbation and concern for community acquired pneumonia. His symptoms improved after Lasix and breathing treatments with his vital signs showing blood pressure decreased to 150/78 with heart rate 54, saturation 96% on 2 liters nasal cannula with respiratory effort 20 breaths per minute. The patient was admitted to the hospital in stable condition. HOSPITAL COURSE: Over the next few days, he was diuresed with Lasix. His sinus CT showed 1) Acute sinusitis involving the maxillary antra, more on the left than the right. Obstruction of the left ostiomeatal unit and narrowing of the ostia on the right ostiomeatal unit. 2) Chronic sinusitis in the anterior ethmoid air cells, large right sphenoid air cell and inferior anterior left frontal air cells. 3) Bilateral woo bullosa in the middle turbinates. Anterior right septal deviation. Posterior left septal spur narrowing the posterior left nasal passageway. 4) Chronic sinusitis in some of the right mastoid air cells. He had been placed on Levaquin and his chest x-ray on his second day showed resolution of pulmonary edema since the prior day's chest radiograph, question of residual right basilar consolidation which might represent pneumonia. His vital signs stabilized. He was afebrile. His heart rate remained stable. Dr. Mccracken saw him in consultation. He felt that his excess buildup was due to pulmonary edema and was not due to congestive heart failure. He said if there was any heart failure, it was very mild and diastolic in etiology. He had an ejection fraction of 60%. Today, the patient has continued to improve. He has no further complaints of shortness of breath. WBCs normalized to 7,200 with stable hemoglobin and hematocrit of 11.6 and 35.5. His electrolytes are basically within normal limits. BNP has come down to 453. The patient would like to be discharged home as he has an appointment with Dr. Kirkland on Thursday at 10:45 for a followup of his sinusitis. He has been given a disc with his radiological studies. He will be discharged home today in stable condition. DISCHARGE PLAN: The patient will be discharged home in stable condition. He is to resume his previous activity, his previous medications and his previous diet. He is to see Dr. Kirkland on Thursday at 10:45 at [facility]. He has a followup with Dr. Vaca on 09/02/18 at 9:45 AM. He will be discharged on Levaquin antibiotics for 7 days. I have not continued any Lasix at this time as his condition improved and Dr. Mccracken felt that he had a very mild form of congestive heart failure. He is to return to the hospital or to call Dr. Vaca ' office for any further problems or complications. DISCHARGE MEDICATIONS: 1. Losartan. 2. Eliquis. 3. Atorvastatin. 4. Atenolol. 5. Aspirin. 6. Cialis. 7. Amiodarone. 8. Meloxicam. 9. Cyanocobalamin. 10. Famotidine. 11. Levaquin. #[id number] [facility]
== END 2018-08-25 13:50 | disposition home or self-care (01) | DRG 193 ==
LOC: ER 21:24 → MS 23:48
PROVIDERS: ADMIT Nurse Practitioner Family; ATTEND Nurse Practitioner Acute Care
DX: J18.9 Pneumonia, unspecified organism (principal); J81.0 Acute pulmonary edema; I50.32 Chronic diastolic (congestive) heart failure; I11.0 Hypertensive heart disease with heart failure; I25.10 Atherosclerotic heart disease of native coronary artery without angina pectoris; E78.2 Mixed hyperlipidemia; I48.91 Unspecified atrial fibrillation; I34.0 Nonrheumatic mitral (valve) insufficiency; I16.0 Hypertensive urgency; N40.0 Benign prostatic hyperplasia without lower urinary tract symptoms; J32.2 Chronic ethmoidal sinusitis; J01.00 Acute maxillary sinusitis, unspecified; I25.2 Old myocardial infarction; Z87.891 Personal history of nicotine dependence; Z95.5 Presence of coronary angioplasty implant and graft; Z79.1 Long term (current) use of non-steroidal anti-inflammatories (NSAID); Z79.02 Long term (current) use of antithrombotics/antiplatelets; Z79.82 Long term (current) use of aspirin; Z79.899 Other long term (current) drug therapy; Z88.0 Allergy status to penicillin

== ENCOUNTER → 2018-10-05 | Outpatient (CLI) | payer MEDICARE, BC | LOC: GMAL 11:28 | PROVIDERS: ATTEND Family Medicine | DX: I50.9 Heart failure, unspecified (principal) ==

== ENCOUNTER → 2018-12-14 | Outpatient (CLI) | payer MEDICARE, BC | LOC: GMAL 16:34 | PROVIDERS: ATTEND Family Medicine | DX: I50.9 Heart failure, unspecified (principal) ==

== ENCOUNTER → 2018-12-24 | Outpatient (CLI) | payer MEDICARE, BC | LOC: GMAL 10:36 | PROVIDERS: ATTEND Family Medicine | DX: I50.9 Heart failure, unspecified (principal) ==

== ENCOUNTER → 2019-05-13 | Outpatient (CLI) | payer MEDICARE, BC | LOC: LAB.O 11:50 | DX: D50.9 Iron deficiency anemia, unspecified (principal); R53.81 Other malaise; R53.83 Other fatigue; N18.3 Chronic kidney disease, stage 3 (moderate); I50.9 Heart failure, unspecified; Z79.01 Long term (current) use of anticoagulants ==

== ENCOUNTER → 2019-05-17 | Outpatient (CLI) | payer MEDICARE, BC | LOC: GMAL 14:59 | PROVIDERS: ATTEND Family Medicine | DX: R53.82 Chronic fatigue, unspecified (principal); I10 Essential (primary) hypertension; I50.9 Heart failure, unspecified; Z12.5 Encounter for screening for malignant neoplasm of prostate | CPT/HCPCS: 84443; G0103 ==

== ENCOUNTER → 2019-11-28 | Outpatient (CLI) | payer MEDICARE, BC | LOC: GMAL 10:40 | PROVIDERS: ATTEND Family Medicine | DX: D51.3 Other dietary vitamin B12 deficiency anemia (principal); R53.82 Chronic fatigue, unspecified; E78.2 Mixed hyperlipidemia ==

== ENCOUNTER → 2020-03-26 | Outpatient (CLI) | payer MEDICARE, BC ==
--- NOTE | 2020-03-26 16:45 | RAD ---
EXAM DESCRIPTION: Hip,Left 2 Views CLINICAL HISTORY: PAIN IN LEFT HIP COMPARISON: None. TECHNIQUE: 2 views left FINDINGS: Minimal acetabular osteophyte formation is observed. No fracture is detected. No pelvic abnormality is seen. IMPRESSION: Minimal degenerative changes observed in the left hip. No fracturing is detected. Electronically signed by: Venancio Philippe MD 03/26/2020 4:43 PM CDT
--- NOTE | 2020-03-26 16:47 | RAD ---
EXAM DESCRIPTION: Pelvis CLINICAL HISTORY: PAIN IN LEFT HIP COMPARISON: None. TECHNIQUE: AP pelvis FINDINGS: Degenerative changes are observed in the lower lumbar spine. The pelvis is intact. No fracturing is detected. Phleboliths are observed in the right side of the pelvis. IMPRESSION: Mild degenerative changes are observed in the lower lumbar spine. No fracturing is detected. Electronically signed by: Venancio Philippe MD 03/26/2020 4:45 PM CDT
== END ==
LOC: RAD 16:00
PROVIDERS: ATTEND Orthopaedic Surgery
DX: M16.12 Unilateral primary osteoarthritis, left hip (principal); M47.896 Other spondylosis, lumbar region

== ENCOUNTER → 2020-03-30 | Outpatient (CLI) | payer MEDICARE, BC ==
--- NOTE | 2020-03-30 14:43 | MRI ---
EXAM DESCRIPTION: Lumbar Spine w/o Contrast CLINICAL HISTORY: LOW BACK PAIN COMPARISON: February 05, 2018 TECHNIQUE: Multiplanar, multisequence MRI of the lumbar spine was performed without contrast. FINDINGS: Lumbar vertebral body heights are maintained without acute compression fracture deformity. Moderate curvature of the upper lumbar spine with convexity towards the right centered at L2. Mild counterclockwise rotation of the upper lumbar spine. 2 to 3 mm anterolisthesis of L5 on S1 is seen with trace retrolisthesis of L2 on L3 and L3 on L4. Mild Modic type II degenerative endplate signal changes towards the left at L1-L2 towards the right at L2-3 with mild Modic type I degenerative endplate signal changes anteriorly at L2-3. Probable atypical vertebral body hemangioma at L2 measuring 11 mm is stable. Conus medullaris terminates at T12-L1 and is unremarkable. Visualized intra-abdominal and retroperitoneal structures show no acute findings or pathologic lymphadenopathy. Degenerative changes of the sacroiliac joints are seen bilaterally. T11-12: Disc desiccation, [id number] disc space narrowing, endplate irregularity, and trace anterolisthesis with mild facet arthrosis is again seen contributing to at least mild to moderate bilateral foraminal encroachment. T12-L1: Disc desiccation and mild loss of disc space height. No spinal canal stenosis or foraminal encroachment. L1-2 Disc desiccation and severe disc space narrowing with mild vacuum disc. Endplate irregularity is seen. Posterior osteophytic ridging. No spinal canal stenosis. Mild bilateral foraminal encroachment. L2-3 Severe diffuse disc space narrowing asymmetric towards the left with vacuum disc. Mild facet hypertrophic and degenerative changes. Stable mild spinal canal stenosis with mild left lateral recess encroachment. At least mild bilateral foraminal encroachment is seen. L3-4 Disc desiccation and mild loss of disc space height with 3 mm broad-based disc bulge and mild facet hypertrophic and degenerative changes slightly worsened from previous. Mild spinal canal stenosis is seen. Moderate bilateral foraminal encroachment. L4-5 Desiccation of the disc space. Mild bilateral facet hypertrophic and degenerative changes. No spinal canal stenosis. Moderate right and mild left foraminal encroachment. L5-S1 Disc desiccation and mild diffuse disc space narrowing. Moderate to severe bilateral facet hypertrophic and degenerative changes are seen with small facet joint effusions. Bilateral ligamentum flavum thickening is again seen resulting in right greater than left lateral recess encroachment. Multifactorial severe left greater than right foraminal encroachment is again seen with loss of normal fat signal from around the exiting L5 nerve roots. IMPRESSION: Mild worsening of multilevel moderate to severe disc disease and facet arthropathy of the lumbar spine with dextrocurvature of the mid to upper lumbar spine. Multilevel foraminal encroachment is seen as described level by level above most significant bilaterally at L5-S1 . Electronically signed by: Riccardo Sanders MD 03/30/2020 2:42 PM CDT
== END ==
LOC: MRI 08:00
PROVIDERS: ATTEND Orthopaedic Surgery
DX: M51.36 Other intervertebral disc degeneration, lumbar region (principal); M12.9 Arthropathy, unspecified; M48.07 Spinal stenosis, lumbosacral region

== ENCOUNTER → 2020-04-09 | Outpatient (CLI) | payer MEDICARE, BC | LOC: GMAL 16:52 | PROVIDERS: ATTEND Family Medicine | DX: R97.20 Elevated prostate specific antigen [PSA] (principal); R53.83 Other fatigue ==

== ENCOUNTER → 2020-05-22 | Outpatient (CLI) | payer MEDICARE, BC | LOC: GMAL 12:41 | PROVIDERS: ATTEND Family Medicine | DX: R97.20 Elevated prostate specific antigen [PSA] (principal); I50.9 Heart failure, unspecified; E78.2 Mixed hyperlipidemia; I10 Essential (primary) hypertension; Z79.899 Other long term (current) drug therapy ==

== ENCOUNTER → 2020-06-12 | Outpatient (CLI) | payer MEDICARE, BC | LOC: GMAL 14:45 | PROVIDERS: ATTEND Family Medicine | DX: R97.20 Elevated prostate specific antigen [PSA] (principal); I10 Essential (primary) hypertension ==

== ENCOUNTER 2020-08-03 05:41 | Day surgery (SDC) | payer MEDICARE, BC ==
[2020-08-03] MEDS ORDERED: LIDOCAINE 1% 10 ML VIAL INJ ONE ×3 (07:00→14:15)
[2020-08-03] MEDS ORDERED: PROPOFOL 200 MG/20 ML VIAL IV ONE (07:00)
[2020-08-03] MEDS ORDERED: methylPREDNISolone ACETATE 80 MG/ML VIAL ONE (08:37)
[2020-08-03] MEDS ORDERED: BUPIVACAINE 0.5% 30 ML VIAL INJ ONE ×2 (08:37→14:15)
[2020-08-03] MEDS ORDERED: SODIUM CHLORIDE 0.9% 1000ML 1,000 ML ONE (12:42)
[2020-08-03] MEDS ORDERED: methylPREDNISolone ACETATE 80 MG/ML VIAL IM ONE (14:16)
--- NOTE | 2020-08-06 09:06 | RAD ---
PROVIDED CLINICAL HISTORY/REASON FOR EXAM: RIGHT SI JOINT INJECTION Findings/impression: One intraoperative fluoroscopic images. Please see operative note Dose: 1.62 mGy Time: 12.7 seconds Electronically signed by: Shine Edwards MD 08/06/2020 9:03 AM CDT
== END 2020-08-03 15:13 | disposition home or self-care (01) ==
LOC: AMB 05:41
PROVIDERS: ATTEND Family Medicine Sports Medicine
DX: M46.1 Sacroiliitis, not elsewhere classified (principal); I10 Essential (primary) hypertension; E78.00 Pure hypercholesterolemia, unspecified; I25.2 Old myocardial infarction; Z79.82 Long term (current) use of aspirin; Z79.899 Other long term (current) drug therapy
CPT/HCPCS: 76000; G0260; J1030; J3490; J7030

== ENCOUNTER → 2020-11-05 | Outpatient (CLI) | payer MEDICARE, BC | LOC: GMAL 11:33 | PROVIDERS: ATTEND Family Medicine | DX: R97.20 Elevated prostate specific antigen [PSA] (principal); I50.9 Heart failure, unspecified; I10 Essential (primary) hypertension; E78.2 Mixed hyperlipidemia ==